=== PATIENT | female | born 1975 ===

== ENCOUNTER 2018-01-02 16:47 | Observation (INO) | payer OTHER ==
[2018-01-02] MEDS ORDERED: Sodium Chloride 0.9% 1,000 ML IV STA (20:07)
[2018-01-02 21:01] LABS: BASO % 0.7 % (0.0-2.0); EOS % 0.6 % (0.0-4.0); LYMPH # 1.7 K/uL (1.0-4.3); LYMPH % 32.8 % (20.0-40.0); MEAN CELL VOLUME 77.9 fl (81.0-99.0); MEAN CORPUSCULAR HEMOGLOBIN 25.2 pg (27.0-31.0); MEAN CORPUSCULAR HGB CONC 32.3 g/dL (33.0-37.0); MEAN PLATELET VOLUME 8.4 fl (7.2-11.7); MONO # 0.4 K/uL (0.0-0.8); MONO % 6.8 % (0.0-10.0); NEUT # 3.1 K/uL (1.8-7.0); NEUT % 59.1 % (50.0-75.0); NRBC % 0.2 % (0.0-0.0); RBC 4.37 Mil/uL (3.80-5.20); RED CELL DISTRIBUTION WIDTH 17.2 % (11.5-14.5); WHITE BLOOD COUNT 5.2 K/uL (4.8-10.8)
[2018-01-02 21:11] LABS: ALB/GLOB RATIO 1.2 (1.0-2.1); ALBUMIN 4.1 g/dL (3.5-5.0); ALT/SGPT 36 U/L (9-52); AST/SGOT 23 U/L (14-36); BLOOD UREA NITROGEN 8 mg/dl (7-17); GFR AFRICAN-AMERICAN > 60; GFR NON-AFRICAN AMERICAN > 60; LIPASE 51 U/L (23-300)
[2018-01-02 21:16] LABS: SQUAMOUS EPITHIAL 4 /hpf (0-5); URINE BACTERIA RARE (<OCC); URINE BILIRUBIN NEGATIVE (NEGATIVE); URINE BLOOD NEGATIVE (NEGATIVE); URINE CLARITY CLOUDY (Clear); URINE COLOR YELLOW (YELLOW); URINE GLUCOSE (UA) NEG (Normal); URINE LEUKOCYTE ESTERASE SMALL Leu/uL (Negative); URINE PROTEIN 30 mg/dL (NEGATIVE); URINE UROBILINOGEN 0.2-1.0 mg/dL (0.2-1.0)
--- NOTE | 2018-01-02 21:42 | ED PDOC ---
HPI: Abdomen Time Seen by Provider: 01/02/18 19:42 Chief Complaint (Nursing): Abdominal Pain Chief Complaint (Provider): abdominal pain History Per: Patient History/Exam Limitations: no limitations Onset/Duration Of Symptoms: Days (2 weeks) Current Symptoms Are (Timing): Still Present Location Of Pain/Discomfort: LLQ Quality Of Discomfort: "Pain" Associated Symptoms: Loss Of Appetite, Other (bloody stool). denies: Fever, Nausea, Vomiting Additional Complaint(s): 42 year old female with a past medical history of diverticulitis presents to the ED complaining of left lower quadrant pain onset two weeks ago. Reports she visited [facility] and was diagnosed with urinary infection. She visited GI specialist, Dr. Lebron and received an abdomen/ pelvis CT angiogram. Also reports the pain progresses and she has a poor appetite. Reports of bloody stool too. Denies fever, nausea, and vomiting. PMD: Gustavo Collado Past Medical History Reviewed: Historical Data, Nursing Documentation, Vital Signs Vital Signs: Last Vital Signs Temp 98.4 F 01/03/18 05:05 Pulse 72 01/03/18 05:05 Resp 19 01/03/18 05:05 BP 108/64 01/03/18 05:05 Pulse Ox 98 01/03/18 05:05 - Medical History PMH: Diverticulitis - Family History Family History: States: Unknown Family Hx - Home Medications Home Medications: Ambulatory Orders Medication Instructions Recorded Ciprofloxacin [Cipro] 500 mg PO BID 01/03/18 metroNIDAZOLE [Flagyl] 250 mg PO TID 01/03/18 - Allergies Allergies/Adverse Reactions: Allergies Allergy/AdvReac Type Severity Reaction Status Date / Time No Known Allergies Allergy Verified 01/02/18 17:28 Review of Systems ROS Statement: Except As Marked, All Systems Reviewed And Found Negative Constitutional: Negative for: Fever Gastrointestinal: Positive for: Abdominal Pain (left lower quadrant). Negative for: Nausea, Vomiting Genitourinary Female: Positive for: Other (bloody stool) Physical Exam - Reviewed Nursing Documentation Reviewed: Yes Vital Signs Reviewed: Yes - Physical Exam Appears: Positive for: Uncomfortable Head Exam: Positive for: ATRAUMATIC, NORMAL INSPECTION, NORMOCEPHALIC Skin: Positive for: Normal Color, Warm, Dry Eye Exam: Positive for: EOMI, Normal appearance, PERRL ENT: Positive for: Normal ENT Inspection Neck: Positive for: Normal, Painless ROM, Supple. Negative for: Decreased ROM Cardiovascular/Chest: Positive for: Regular Rate, Rhythm. Negative for: Murmur Respiratory: Positive for: Normal Breath Sounds. Negative for: Decreased Breath Sounds, Accessory Muscle Use, Respiratory Distress Gastrointestinal/Abdominal: Positive for: Soft, Tenderness (palpitations to left lower quadrant) Back: Positive for: Normal Inspection. Negative for: L CVA Tenderness, R CVA Tenderness Extremity: Positive for: Normal ROM. Negative for: Tenderness, Pedal Edema, Deformity Neurologic/Psych: Positive for: Alert, Oriented (x3), Gait (steady) - Laboratory Results Result Diagrams: 01/02/18 20:55 01/02/18 20:55 - ECG O2 Sat by Pulse Oximetry: 99 (RA) Pulse Ox Interpretation: Normal Medical Decision Making Medical Decision Making: Time: 19:55 Initial Impression: 42 y/o female with left lower quadrant tenderness inset of diverticulitis; currently being treated for diverticulitis Initial Plan: -- CMP --Lactic Acid --Lipase --ED Urine --ED Urine dipstick --CBC w/ differential --C-Reactive Protein --Normal Saline 1000 mls/hr --Toradol 15mg --Blood Culture --Urinalysis --Reevaluation Time: 20:20 Dr. Lebron asked for patient's CRQ level and incising colonoscopy after reviewing labs tomorrow morning. 22:10 Dr. Lebron was recontacted and made aware of the WBC. He does not want the patient to undergo a CT scan but suggested as pelvic ultrasound to rule out ovarian etiology of her pain. 00:23 EXAM: US Pelvis, Transvaginal US Duplex Arterial/Venous of the Pelvis, Complete EXAM DATE/TIME: 01/02/2018 10:11 PM CLINICAL HISTORY: 42 years old, female; Pain; Pelvic pain; Additional info: Left ovarian pain TECHNIQUE: Real-time transvaginal pelvic ultrasound (complete) with image documentation. Transvaginal imaging was used for better evaluation of the endometrium and adnexa. Real-time duplex ultrasound scan of the arterial and venous flow of the pelvis with color Doppler flow and spectral waveform analysis. COMPARISON: There are no prior studies for comparison. FINDINGS: Uterus: Uterus measures approximately 9 x 5.8 x 8 cm. Endometrium measures approximately 11 mm in width. There are multiple nabothian cysts in the cervix. There are multiple fibroids. There is a right fundal fibroid 3.1 x 3 x 2.5 cm. There is a 3.7 x 3.2 cm submucosal fibroid. There is a posterior fundal fibroid Right ovary: Right ovary measures approximately 2 x 1.3 x 2 cm. There is a dominant follicle.There is expected blood flow on Doppler imaging Left ovary: Left ovary is not well visualized. Left ovary measures approximately 3.8 x 1.6 x 2.4 cm. There are follicles in the left ovary.There is expected blood flow on Doppler imaging Free fluid: There is no free fluid. Bladder: Not evaluated IMPRESSION: Fibroid uterus; no torsion 02:[address] Locke for admission of the patient for Diverticular disease, failed out treatment, left lower quadrant pain. Scribe Attestation: Documented by Lindsey Jsohi, acting as a scribe for Richard Bourgeois MD Provider Scribe Attestation: All medical record entries made by the Scribe were at my direction and personally dictated by me. I have reviewed the chart and agree that the record accurately reflects my personal performance of the history, physical exam, medical decision making, and the department course for this patient. I have also personally directed, reviewed, and agree with the discharge instructions and disposition. Disposition - Clinical Impression Clinical Impression: Abdominal pain, Diverticulitis - Patient ED Disposition Is Patient to be Admitted: Yes Discussed With : Kit Locke Doctor Will See Patient In The: Hospital - Disposition Disposition: Routine/Home Disposition Time: 02:38 Condition: FAIR
[2018-01-03] MEDS ORDERED: metroNIDAZOLE 500mg/100ml NS 100 ML IVPB STA (02:30)
[2018-01-03] MEDS ORDERED: Ciprofloxacin 400mg/200ml D5W 400 MG/200 ML BAG IV STA (02:32)
[2018-01-03] MEDS ORDERED: Sodium Chloride 0.9% 1,000 ML IV SCH (02:45)
--- NOTE | 2018-01-03 02:45 | CP.PCM.HP ---
History of Present Illness - History of Present Illness History of Present Illness: CC: abd pain, bloody stool HPI: This is a 42 y/o female with MHx significant for diverticulitis who has been on outpatient Abx of past two weeks. She continues to c/o bloody stool. Apparently she visited [facility] recently where she was dx'ed with UTI. She has seen Dr. Lebron as an outpatient, and was pending CT angiogram. Patient otherwise denies f/c/n/v. Currently patient states her pain is controlled after receiving medication. ROS: 14 systems reviewed, negative other than HPI MHx: Diverticulosis/itis SHx: None Allergies: NKDA Medications: As per med rec Family Hx: no significant history reported Social Hx: Lives with family, no tobacco, no EtOH Present on Admission - Present on Admission Any Indicators Present on Admission: No Past Patient History - Past Social History Smoking Status: Never Smoked - GASTROINTESTINAL Hx Diverticulitis: Yes - PSYCHIATRIC Hx Substance Use: No - SURGICAL HISTORY Other/Comment: hemorrhoidectomy - ANESTHESIA Hx Anesthesia: Yes Meds Allergies/Adverse Reactions: Allergies Allergy/AdvReac Type Severity Reaction Status Date / Time No Known Allergies Allergy Verified 01/02/18 17:28 Physical Exam - Constitutional Appears: No Acute Distress - Head Exam Head Exam: ATRAUMATIC, NORMOCEPHALIC - Eye Exam Eye Exam: EOMI, PERRL - ENT Exam ENT Exam: Mucous Membranes Moist - Neck Exam Neck exam: Positive for: Full Rom - Respiratory Exam Respiratory Exam: Clear to Auscultation Bilateral, NORMAL BREATHING PATTERN - Cardiovascular Exam Cardiovascular Exam: REGULAR RHYTHM, +S1, +S2 - GI/Abdominal Exam GI & Abdominal Exam: Normal Bowel Sounds, Soft, Tenderness Additional comments: LLQ ttp - Extremities Exam Extremities exam: Positive for: full ROM, normal inspection - Neurological Exam Neurological exam: Alert, CN II-XII Intact, Oriented x3 - Psychiatric Exam Psychiatric exam: Normal Affect, Normal Mood - Skin Skin Exam: Dry, Warm Results - Vital Signs Recent Vital Signs: Last Vital Signs Temp 98.2 F 01/02/18 17:28 Pulse 90 01/02/18 17:28 Resp 16 01/02/18 17:28 BP 138/63 01/02/18 17:28 Pulse Ox 99 01/03/18 02:40 - Labs Result Diagrams: 01/02/18 20:55 01/02/18 20:55 Labs: Laboratory Results - last 24 hr 01/02/18 01/02/18 01/02/18 20:55 20:55 20:55 WBC 5.2 RBC 4.37 Hgb 11.0 L Hct 34.0 MCV 77.9 L MCH 25.2 L MCHC 32.3 L RDW 17.2 H Plt Count 184 MPV 8.4 Neut % (Auto) 59.1 Lymph % (Auto) 32.8 [place] % (Auto) 6.8 Eos % (Auto) 0.6 Baso % (Auto) 0.7 Neut # (Auto) 3.1 Lymph # (Auto) 1.7 [place] # (Auto) 0.4 Eos # (Auto) 0.0 Baso # (Auto) 0.0 Sodium 141 Potassium 4.0 Chloride 103 Carbon Dioxide 25 Anion Gap 17 BUN 8 Creatinine 0.5 L Est GFR ( Amer) > 60 Est GFR (Non-Af Amer) > 60 Random Glucose 86 Lactic Acid 0.8 Calcium 9.0 Total Bilirubin 0.5 AST 23 ALT 36 Alkaline Phosphatase 65 Total Protein 7.5 Albumin 4.1 Globulin 3.3 Albumin/Globulin Ratio 1.2 Lipase 51 Urine Color Urine Clarity Urine pH Ur Specific [place] Urine Protein Urine Glucose (UA) Urine Ketones Urine Blood Urine Nitrate Urine Bilirubin Urine Urobilinogen Ur Leukocyte Esterase Urine RBC (Auto) Urine Microscopic WBC Ur Squamous Epith Cells Urine Bacteria 01/02/18 20:55 WBC RBC Hgb Hct MCV MCH MCHC RDW Plt Count MPV Neut % (Auto) Lymph % (Auto) [place] % (Auto) Eos % (Auto) Baso % (Auto) Neut # (Auto) Lymph # (Auto) [place] # (Auto) Eos # (Auto) Baso # (Auto) Sodium Potassium Chloride Carbon Dioxide Anion Gap BUN Creatinine Est GFR ( Amer) Est GFR (Non-Af Amer) Random Glucose Lactic Acid Calcium Total Bilirubin AST ALT Alkaline Phosphatase Total Protein Albumin Globulin Albumin/Globulin Ratio Lipase Urine Color Yellow Urine Clarity Cloudy Urine pH 6.0 Ur Specific [place] 1.024 Urine Protein 30 Urine Glucose (UA) Neg Urine Ketones 80 Urine Blood Negative Urine Nitrate Negative Urine Bilirubin Negative Urine Urobilinogen 0.2-1.0 Ur Leukocyte Esterase Small Urine RBC (Auto) 3 Urine Microscopic WBC 9 H Ur Squamous Epith Cells 4 Urine Bacteria Rare Assessment & Plan (1) Diverticulitis Assessment and Plan: 42 y/o female with known diverticulosis/itis presenting with persistent abd pain and bloody stool. -admit obs -Cont cipro/flagyl, but switch to IV -NPO, IVF -Pain control per scale -Consult Lebron (GI) in AM for possible scope -SCDs for DVT PPx Status: Acute (2) DVT prophylaxis Status: Acute
--- NOTE | 2018-01-03 08:43 | CP.PCM.CON ---
History of Present Illness - History of Present Illness History of Present Illness: 42 yo female seen by me last Tuesday for lower abdominal pain. Patient states she has had diverticulitis in the past and had CT at [facility]. However in my office she didn't bring a copy of the report. She also reports having a colonoscopy about 6 months ago but I have not seen the report. Has been on cipro and flagyl since Tuesday but pain persists. Reports small amounts bright red blood on toilet paper. Review of Systems - Constitutional Constitutional: absent: Chills - EENT Eyes: absent: Blurred Vision Ears: absent: Ear Discharge Nose/Mouth/Throat: absent: Epistaxis - Cardiovascular Cardiovascular: absent: Chest Pain - Respiratory Respiratory: absent: Dyspnea - Gastrointestinal Gastrointestinal: As Per HPI - Genitourinary Genitourinary: absent: Change in Urinary Stream Past Patient History - Past Medical History & Family History Past Medical History?: Yes - Past Social History Smoking Status: Never Smoked - CARDIAC Hx Cardiac Disorders: Yes Hx Hypercholesterolemia: Yes - PULMONARY Hx Respiratory Disorders: No - NEUROLOGICAL Hx Neurological Disorder: No - HEENT Hx HEENT Problems: No - RENAL Hx Chronic Kidney Disease: No - ENDOCRINE/METABOLIC Hx Endocrine Disorders: No - HEMATOLOGICAL/ONCOLOGICAL Hx Blood Disorders: No - INTEGUMENTARY Hx Dermatological Problems: No - MUSCULOSKELETAL/RHEUMATOLOGICAL Hx Musculoskeletal Disorders: No Hx Falls: No - GASTROINTESTINAL Hx Diverticulitis: Yes - GENITOURINARY/GYNECOLOGICAL Hx Genitourinary Disorders: No - PSYCHIATRIC Hx Psychophysiologic Disorder: No Hx Substance Use: No - SURGICAL HISTORY Hx Surgeries: Yes Other/Comment: hemorrhoidectomy - ANESTHESIA Hx Anesthesia: Yes Hx Anesthesia Reactions: No Hx Malignant Hyperthermia: No Has any member of the family had a problem w/ anesthesia?: No Meds Allergies/Adverse Reactions: Allergies Allergy/AdvReac Type Severity Reaction Status Date / Time No Known Allergies Allergy Verified 01/02/18 17:28 - Medications Medications: Current Medications Acetaminophen (Tylenol 325mg Tab) 650 mg PO Q6 PRN PRN Reason: Pain, Mild (1-3) Ciprofloxacin (Cipro 400mg/200ml Dsw) 400 mg in 200 mls @ 200 mls/hr IVPB Q12 MARIA EUGENIA PRN Reason: Protocol Metronidazole (Flagyl 500mg/100ml Ns) 100 mls @ 100 mls/hr IVPB Q8 MARIA EUGENIA PRN Reason: Protocol Sodium Chloride (Sodium Chloride 0.9%) 1,000 mls @ 100 mls/hr IV .Q10H MARIA EUGENIA Stop: 01/03/18 12:44 Last Admin: 01/03/18 03:02 Dose: 100 mls/hr Ondansetron HCl (Zofran Inj) 4 mg IVP Q6 PRN PRN Reason: Nausea/Vomiting Oxycodone/Acetaminophen (Percocet 5/325 Mg Tab) 1 tab PO Q6 PRN PRN Reason: Pain, moderate (4-7) Stop: 01/06/18 02:43 Physical Exam - Constitutional Appears: No Acute Distress - Head Exam Head Exam: ATRAUMATIC - Eye Exam Eye Exam: EOMI - ENT Exam ENT Exam: Mucous Membranes Moist - Neck Exam Neck exam: Positive for: Normal Inspection - Respiratory Exam Respiratory Exam: NORMAL BREATHING PATTERN - Cardiovascular Exam Cardiovascular Exam: REGULAR RHYTHM, +S1, +S2 - GI/Abdominal Exam GI & Abdominal Exam: Normal Bowel Sounds, Soft, Tenderness. absent: Rebound Additional comments: suprapubic and LLQ tenderness but no guarding or rebound. Results - Vital Signs Recent Vital Signs: Last Vital Signs Temp 98.4 F 01/03/18 07:56 Pulse 66 01/03/18 07:56 Resp 20 01/03/18 07:56 BP 105/61 01/03/18 07:56 Pulse Ox 100 01/03/18 07:56 - Labs Result Diagrams: 01/02/18 20:55 01/02/18 20:55 Labs: Laboratory Results - last 24 hr 01/02/18 01/02/18 01/02/18 20:55 20:55 20:55 WBC 5.2 RBC 4.37 Hgb 11.0 L Hct 34.0 MCV 77.9 L MCH 25.2 L MCHC 32.3 L RDW 17.2 H Plt Count 184 MPV 8.4 Neut % (Auto) 59.1 Lymph % (Auto) 32.8 [place] % (Auto) 6.8 Eos % (Auto) 0.6 Baso % (Auto) 0.7 Neut # (Auto) 3.1 Lymph # (Auto) 1.7 [place] # (Auto) 0.4 Eos # (Auto) 0.0 Baso # (Auto) 0.0 Sodium 141 Potassium 4.0 Chloride 103 Carbon Dioxide 25 Anion Gap 17 BUN 8 Creatinine 0.5 L Est GFR ( Amer) > 60 Est GFR (Non-Af Amer) > 60 Random Glucose 86 Lactic Acid 0.8 Calcium 9.0 Total Bilirubin 0.5 AST 23 ALT 36 Alkaline Phosphatase 65 Total Protein 7.5 Albumin 4.1 Globulin 3.3 Albumin/Globulin Ratio 1.2 Lipase 51 Urine Color Urine Clarity Urine pH Ur Specific [place] Urine Protein Urine Glucose (UA) Urine Ketones Urine Blood Urine Nitrate Urine Bilirubin Urine Urobilinogen Ur Leukocyte Esterase Urine RBC (Auto) Urine Microscopic WBC Ur Squamous Epith Cells Urine Bacteria 01/02/18 20:55 WBC RBC Hgb Hct MCV MCH MCHC RDW Plt Count MPV Neut % (Auto) Lymph % (Auto) [place] % (Auto) Eos % (Auto) Baso % (Auto) Neut # (Auto) Lymph # (Auto) [place] # (Auto) Eos # (Auto) Baso # (Auto) Sodium Potassium Chloride Carbon Dioxide Anion Gap BUN Creatinine Est GFR ( Amer) Est GFR (Non-Af Amer) Random Glucose Lactic Acid Calcium Total Bilirubin AST ALT Alkaline Phosphatase Total Protein Albumin Globulin Albumin/Globulin Ratio Lipase Urine Color Yellow Urine Clarity Cloudy Urine pH 6.0 Ur Specific [place] 1.024 Urine Protein 30 Urine Glucose (UA) Neg Urine Ketones 80 Urine Blood Negative Urine Nitrate Negative Urine Bilirubin Negative Urine Urobilinogen 0.2-1.0 Ur Leukocyte Esterase Small Urine RBC (Auto) 3 Urine Microscopic WBC 9 H Ur Squamous Epith Cells 4 Urine Bacteria Rare Assessment & Plan (1) Abdominal pain Assessment and Plan: Patient with lower abdominal pain etiology non apparent. Pelvic sono did show fibroid uterus . Currently on IV antibiotics. Will place on full liquid diet and may advance as tolerated. Diverticulitis as cause of pain is less likely with normal WBC and no fever. Rectal bleeding appears to be minor. CBC ordered for today. Consider [employer] consult as cause of pain could be pelvic. Status: Acute
[2018-01-03] MEDS: Oxycodone/Acetaminophen 5/325 mg Tab PO PRN ×2 (08:54→16:18)
[2018-01-03 09:44] LABS: BASO % 0.9 % (0.0-2.0); EOS % 1.2 % (0.0-4.0); HEMOGLOBIN 11.5 g/dL (12.0-16.0); LYMPH # 1.3 K/uL (1.0-4.3); LYMPH % 30.9 % (20.0-40.0); MEAN CELL VOLUME 77.4 fl (81.0-99.0); MEAN CORPUSCULAR HEMOGLOBIN 25.4 pg (27.0-31.0); MEAN CORPUSCULAR HGB CONC 32.8 g/dL (33.0-37.0); MEAN PLATELET VOLUME 8.5 fl (7.2-11.7); MONO # 0.2 K/uL (0.0-0.8); MONO % 5.4 % (0.0-10.0); NEUT # 2.6 K/uL (1.8-7.0); NEUT % 61.6 % (50.0-75.0); RBC 4.54 Mil/uL (3.80-5.20); RED CELL DISTRIBUTION WIDTH 17.3 % (11.5-14.5); WHITE BLOOD COUNT 4.1 K/uL (4.8-10.8)
[2018-01-03 09:55] LABS: BLOOD UREA NITROGEN 7 mg/dl (7-17); CALCIUM 8.6 mg/dL (8.4-10.2); GFR AFRICAN-AMERICAN > 60; GFR NON-AFRICAN AMERICAN > 60
[2018-01-03] MEDS: metroNIDAZOLE 500mg/100ml NS 100 ML IVPB SCH ×2 (10:09→16:19)
[2018-01-03] MEDS: Ciprofloxacin 400mg/200ml D5W 400 MG/200 ML BAG IVPB SCH ×2 (10:10→21:37)
--- NOTE | 2018-01-03 11:28 | US ---
HISTORY: Left ovarian pain. LMP 12/20/2017. Irregular cycles. Negative urine test. COMPARISON: 12/29/2010 TECHNIQUE: Transvaginal only. Real -time technique with 2D, duplex and color Doppler FINDINGS: UTERUS: Measures 5.8 x 8.2 x 9.1 cm. Normal in size and appearance. Posterior lower uterine segment fibroid 3.2 x 3.7 cm. Fundal fibroid 3.9 x 5.4 cm. Submucosal fibroid to the right of the midline in the body of the uterus 3 x 3.2 cm. ENDOMETRIUM: Measures 11.2 mm in diameter. No ultrasound findings to suggest gestational sac, fluid, debris, mass or polyp or other pathologic process within the endometrium. CERVIX: No cervical abnormality identified.Incidental finding: Nabothian cysts the largest measures RIGHT OVARY: Measures 1.3 x 2 x 2.1 cm. No solid mass. Normal flow. Multiple subcentimeter follicles. LEFT OVARY: Measures 0.9 x 2.4 x 3.0 cm. No solid mass. Normal flow. Multiple subcentimeter follicles. FREE FLUID: No significant free fluid noted. OTHER FINDINGS: None. IMPRESSION: Mildly enlarged, heterogeneous myomatous uterus. Flow identified in both adnexa. Additional benign and/or incidental findings described above. Concordant results (preliminary interpretation) provided by [employer]. Procedure Completed: 23:19. Preliminary ([employer]) Report: Dictated and Authenticated: Final Interpretation: 11:29. January 03, 2018.
--- NOTE | 2018-01-03 18:45 | CP.PCM.CON ---
<Sultan Zunilda - Last Filed: 01/03/18 19:20> History of Present Illness - History of Present Illness History of Present Illness: FINANCIAL INSTITUTION TREASURER Consult note for Dr. Tineo 42 yo G0 pmhx diverticulitis, hemorrhoidectomy and uterine fibroids presents to ED w/ complaints of LLQ abdominal pain x 2 weeks, along with blood in stool for few days and chronic hx constipation x 2-3 yrs. Byproducts Pump Operator was consulted for uterine fibroids and lower abdominal pain. Pt reports she has hx fibroid for 7 yrs but never had lower abdominal pain until recently. Denies vaginal bleeding, vaginal discharge or pruritus. Pt reports she recently had ?CT scan at [facility] which showed leiomyoma and uterine fibroids and advised to f/u with security associate. Pt went to see a provider at [facility] and was told to f/u with [facility] with a mechanical operator. Pt still did not make the appointment yet. Past OBHx: G0 Past gynhx: menarche at age 10, regular menstruation. LMP 12/20/17. Sexually active, last coitus 2 weeks ago. Pt reports she had workup done for infertility including hx hysterosalpingogram in 2008. PAP done in 06/2017 and was told to repeat in a year. Pmhx: uterine fibroids, diverticulitis and hemorrhoids Pshx: hemorrhoidectomy, colonoscopy with polyp resection. socialhx: denies smoking cigarettes, drinking alcohol or using drugs. family hx: denies family hx uterine or breast ca. meds: denies allergy: NKDA Review of Systems - Constitutional Constitutional: absent: Fever - Cardiovascular Cardiovascular: absent: Chest Pain, Dyspnea - Respiratory Respiratory: absent: Cough, Dyspnea - Gastrointestinal Gastrointestinal: Abdominal Pain, Constipation. absent: Diarrhea, Vomiting - Genitourinary Genitourinary: absent: Dysuria, Hematuria - Reproductive: Female Reproductive:Female: Normal Menses. absent: Abnormal Vaginal Bleeding, Vaginal Odor, Vaginal Pruritis - Neurological Neurological: absent: Headaches Past Patient History - Past Medical History & Family History Past Medical History?: Yes - Past Social History Smoking Status: Never Smoked - CARDIAC Hx Cardiac Disorders: Yes Hx Hypercholesterolemia: Yes - PULMONARY Hx Respiratory Disorders: No - NEUROLOGICAL Hx Neurological Disorder: No - HEENT Hx HEENT Problems: No - RENAL Hx Chronic Kidney Disease: No - ENDOCRINE/METABOLIC Hx Endocrine Disorders: No - HEMATOLOGICAL/ONCOLOGICAL Hx Blood Disorders: No - INTEGUMENTARY Hx Dermatological Problems: No - MUSCULOSKELETAL/RHEUMATOLOGICAL Hx Musculoskeletal Disorders: No Hx Falls: No - GASTROINTESTINAL Hx Diverticulitis: Yes - GENITOURINARY/GYNECOLOGICAL Hx Genitourinary Disorders: No - PSYCHIATRIC Hx Psychophysiologic Disorder: No Hx Substance Use: No - SURGICAL HISTORY Hx Surgeries: Yes Other/Comment: hemorrhoidectomy - ANESTHESIA Hx Anesthesia: Yes Hx Anesthesia Reactions: No Hx Malignant Hyperthermia: No Has any member of the family had a problem w/ anesthesia?: No Meds Allergies/Adverse Reactions: Allergies Allergy/AdvReac Type Severity Reaction Status Date / Time No Known Allergies Allergy Verified 01/02/18 17:28 - Medications Medications: Current Medications Acetaminophen (Tylenol 325mg Tab) 650 mg PO Q6 PRN PRN Reason: Pain, Mild (1-3) Ciprofloxacin (Cipro 400mg/200ml Dsw) 400 mg in 200 mls @ 200 mls/hr IVPB Q12 MARIA EUGENIA PRN Reason: Protocol Last Admin: 01/03/18 10:10 Dose: 200 mls/hr Metronidazole (Flagyl 500mg/100ml Ns) 100 mls @ 100 mls/hr IVPB Q8 MARIA EUGENIA PRN Reason: Protocol Last Admin: 01/03/18 16:19 Dose: 100 mls/hr Ondansetron HCl (Zofran Inj) 4 mg IVP Q6 PRN PRN Reason: Nausea/Vomiting Oxycodone/Acetaminophen (Percocet 5/325 Mg Tab) 1 tab PO Q6 PRN PRN Reason: Pain, moderate (4-7) Stop: 01/06/18 02:43 Last Admin: 01/03/18 16:18 Dose: 1 tab Physical Exam - Constitutional Appears: Non-toxic, No Acute Distress - Respiratory Exam Respiratory Exam: Clear to Auscultation Bilateral, NORMAL BREATHING PATTERN. absent: Rales, Rhonchi, Wheezes - Cardiovascular Exam Cardiovascular Exam: REGULAR RHYTHM, RRR, +S1, +S2 - GI/Abdominal Exam GI & Abdominal Exam: absent: Distended, Guarding Additional comments: Mild tenderness at LLQ, no guarding or rigidity. No suprapubic tenderness. - Exam Additional comments: Declined - Neurological Exam Neurological exam: Alert, Oriented x3 Results - Vital Signs Recent Vital Signs: Last Vital Signs Temp 98.2 F 01/03/18 15:37 Pulse 73 01/03/18 15:37 Resp 20 01/03/18 15:37 BP 130/79 01/03/18 15:37 Pulse Ox 99 01/03/18 15:37 - Labs Result Diagrams: 01/03/18 09:38 01/03/18 09:38 Labs: Laboratory Results - last 24 hr 01/02/18 01/02/18 01/02/18 20:55 20:55 20:55 WBC 5.2 RBC 4.37 Hgb 11.0 L Hct 34.0 MCV 77.9 L MCH 25.2 L MCHC 32.3 L RDW 17.2 H Plt Count 184 MPV 8.4 Neut % (Auto) 59.1 Lymph % (Auto) 32.8 [place] % (Auto) 6.8 Eos % (Auto) 0.6 Baso % (Auto) 0.7 Neut # (Auto) 3.1 Lymph # (Auto) 1.7 [place] # (Auto) 0.4 Eos # (Auto) 0.0 Baso # (Auto) 0.0 Sodium 141 Potassium 4.0 Chloride 103 Carbon Dioxide 25 Anion Gap 17 BUN 8 Creatinine 0.5 L Est GFR ( Amer) > 60 Est GFR (Non-Af Amer) > 60 Random Glucose 86 Lactic Acid 0.8 Calcium 9.0 Total Bilirubin 0.5 AST 23 ALT 36 Alkaline Phosphatase 65 Total Protein 7.5 Albumin 4.1 Globulin 3.3 Albumin/Globulin Ratio 1.2 Lipase 51 Urine Color Urine Clarity Urine pH Ur Specific [place] Urine Protein Urine Glucose (UA) Urine Ketones Urine Blood Urine Nitrate Urine Bilirubin Urine Urobilinogen Ur Leukocyte Esterase Urine RBC (Auto) Urine Microscopic WBC Ur Squamous Epith Cells Urine Bacteria 01/02/18 01/03/18 01/03/18 20:55 09:38 09:38 WBC 4.1 L RBC 4.54 Hgb 11.5 L Hct 35.2 MCV 77.4 L MCH 25.4 L MCHC 32.8 L RDW 17.3 H Plt Count 181 MPV 8.5 Neut % (Auto) 61.6 Lymph % (Auto) 30.9 [place] % (Auto) 5.4 Eos % (Auto) 1.2 Baso % (Auto) 0.9 Neut # (Auto) 2.6 Lymph # (Auto) 1.3 [place] # (Auto) 0.2 Eos # (Auto) 0.0 Baso # (Auto) 0.0 Sodium 141 Potassium 3.6 Chloride 105 Carbon Dioxide 26 Anion Gap 14 BUN 7 Creatinine 0.5 L Est GFR ( Amer) > 60 Est GFR (Non-Af Amer) > 60 Random Glucose 139 H Lactic Acid Calcium 8.6 Total Bilirubin AST ALT Alkaline Phosphatase Total Protein Albumin Globulin Albumin/Globulin Ratio Lipase Urine Color Yellow Urine Clarity Cloudy Urine pH 6.0 Ur Specific [place] 1.024 Urine Protein 30 Urine Glucose (UA) Neg Urine Ketones 80 Urine Blood Negative Urine Nitrate Negative Urine Bilirubin Negative Urine Urobilinogen 0.2-1.0 Ur Leukocyte Esterase Small Urine RBC (Auto) 3 Urine Microscopic WBC 9 H Ur Squamous Epith Cells 4 Urine Bacteria Rare Assessment & Plan - Assessment and Plan (Free Text) Assessment: Assessment: 42 yo G0 admitted to [facility] on 01/03/18 for suspected diverticulitis and has uterine fibroids on US. Plan: 1. LLQ abdominal pain Transvaginal US impression: Mildly enlarged, heterogenous myomatous uterus. -Pt's current abdominal pain unlikely to be due to uterine fibroids. -Continue with current medical management as per primary team -Pt can follow up outpatient with a mechanical operator ( pt has information for [facility] ob /security associate clinic). -FINANCIAL INSTITUTION TREASURER will sign off from this case, re-consult PRN case d/w on-call OB Hospitalist Dr. Rivka Mauro, [id number] <Solitario Tineo - Last Filed: 01/04/18 10:05> Meds - Medications Medications: Current Medications Acetaminophen (Tylenol 325mg Tab) 650 mg PO Q6 PRN PRN Reason: Pain, Mild (1-3) Ciprofloxacin (Cipro 400mg/200ml Dsw) 400 mg in 200 mls @ 200 mls/hr IVPB Q12 MARIA EUGENIA PRN Reason: Protocol Last Admin: 01/03/18 21:37 Dose: 200 mls/hr Metronidazole (Flagyl 500mg/100ml Ns) 100 mls @ 100 mls/hr IVPB Q8 MARIA EUGENIA PRN Reason: Protocol Last Admin: 01/04/18 00:28 Dose: 100 mls/hr Ondansetron HCl (Zofran Inj) 4 mg IVP Q6 PRN PRN Reason: Nausea/Vomiting Last Admin: 01/03/18 19:38 Dose: 4 mg Oxycodone/Acetaminophen (Percocet 5/325 Mg Tab) 1 tab PO Q6 PRN PRN Reason: Pain, moderate (4-7) Stop: 01/06/18 02:43 Last Admin: 01/03/18 16:18 Dose: 1 tab Results - Vital Signs Recent Vital Signs: Last Vital Signs Temp 97.6 F 01/04/18 08:14 Pulse 62 01/04/18 08:14 Resp 20 01/04/18 08:14 BP 113/67 01/04/18 08:14 Pulse Ox 99 01/04/18 08:14 - Labs Result Diagrams: 01/03/18 09:38 01/03/18 09:38 Assessment & Plan - Assessment and Plan (Free Text) Plan: Case rev'd and agree wt pGY1 note. Case also discuse with [facility] providers JG
[2018-01-04] MEDS: metroNIDAZOLE 500mg/100ml NS 100 ML IVPB SCH ×2 (00:28→12:07)
[2018-01-04] MEDS: Ciprofloxacin 400mg/200ml D5W 400 MG/200 ML BAG IVPB SCH (09:00)
--- NOTE | 2018-01-04 11:15 | CP.PCM.PN ---
Subjective - Date & Time of Evaluation Date of Evaluation: 01/04/18 Time of Evaluation: 11:13 - Subjective Subjective: Pain much improved. tolerating liquids. Objective - Vital Signs/Intake and Output Vital Signs (last 24 hours): Temp Pulse Resp BP Pulse Ox 97.6 F 62 20 113/67 99 01/04/18 08:14 01/04/18 08:14 01/04/18 08:14 01/04/18 08:14 01/04/18 08:14 Intake and Output: 01/04/18 01/04/18 06:59 18:59 Intake Total 1000 Balance 1000 - Medications Medications: Current Medications Acetaminophen (Tylenol 325mg Tab) 650 mg PO Q6 PRN PRN Reason: Pain, Mild (1-3) Ciprofloxacin (Cipro 400mg/200ml Dsw) 400 mg in 200 mls @ 200 mls/hr IVPB Q12 MARIA EUGENIA PRN Reason: Protocol Last Admin: 01/03/18 21:37 Dose: 200 mls/hr Metronidazole (Flagyl 500mg/100ml Ns) 100 mls @ 100 mls/hr IVPB Q8 MARIA EUGENIA PRN Reason: Protocol Last Admin: 01/04/18 00:28 Dose: 100 mls/hr Ondansetron HCl (Zofran Inj) 4 mg IVP Q6 PRN PRN Reason: Nausea/Vomiting Last Admin: 01/03/18 19:38 Dose: 4 mg Oxycodone/Acetaminophen (Percocet 5/325 Mg Tab) 1 tab PO Q6 PRN PRN Reason: Pain, moderate (4-7) Stop: 01/06/18 02:43 Last Admin: 01/03/18 16:18 Dose: 1 tab - Labs Labs: 01/03/18 09:38 01/03/18 09:38 - Head Exam Head Exam: ATRAUMATIC - Eye Exam Eye Exam: EOMI - ENT Exam ENT Exam: Mucous Membranes Moist - Neck Exam Neck Exam: Normal Inspection - Respiratory Exam Respiratory Exam: Clear to Ausculation Bilateral - GI/Abdominal Exam GI & Abdominal Exam: Soft. absent: Tenderness Assessment and Plan (1) Abdominal pain Assessment & Plan: Much better clinically. Will do flex sig today to examine area of abdominal pain. Status: Acute
[2018-01-04] MEDS ORDERED: Lactated Ringer's 500 ML IV ONE (12:50)
--- NOTE | 2018-01-04 13:57 | CP.PCM.DIS ---
Provider - Provider Date of Admission: 01/03/18 02:29 Attending physician: Kit Locke MD Consults: GI ; Dr Lebron RECEPTIONIST TELEPHONE OPERATOR: DR Tineo Time Spent in preparation of Discharge (in minutes): 35 Diagnosis - Discharge Diagnosis (1) Abdominal pain Status: Acute (2) Uterine fibroid Status: Chronic (3) Internal hemorrhoids Status: Chronic Hospital Course - Lab Results Lab Results: Micro Results 01/02/18 21:15 Blood Blood Culture - Preliminary NO GROWTH AFTER 24 HOURS 01/02/18 20:45 Blood Blood Culture - Preliminary NO GROWTH AFTER 24 HOURS Most Recent Lab Values WBC 4.1 K/uL (4.8-10.8) L 01/03/18 09:38 RBC 4.54 Mil/uL (3.80-5.20) 01/03/18 09:38 Hgb 11.5 g/dL (12.0-16.0) L 01/03/18 09:38 Hct 35.2 % (34.0-47.0) 01/03/18 09:38 MCV 77.4 fl (81.0-99.0) L 01/03/18 09:38 MCH 25.4 pg (27.0-31.0) L 01/03/18 09:38 MCHC 32.8 g/dL (33.0-37.0) L 01/03/18 09:38 RDW 17.3 % (11.5-14.5) H 01/03/18 09:38 Plt Count 181 K/uL (130-400) 01/03/18 09:38 MPV 8.5 fl (7.2-11.7) 01/03/18 09:38 Neut % (Auto) 61.6 % (50.0-75.0) 01/03/18 09:38 Lymph % (Auto) 30.9 % (20.0-40.0) 01/03/18 09:38 [place] % (Auto) 5.4 % (0.0-10.0) 01/03/18 09:38 Eos % (Auto) 1.2 % (0.0-4.0) 01/03/18 09:38 Baso % (Auto) 0.9 % (0.0-2.0) 01/03/18 09:38 Neut # (Auto) 2.6 K/uL (1.8-7.0) 01/03/18 09:38 Lymph # (Auto) 1.3 K/uL (1.0-4.3) 01/03/18 09:38 [place] # (Auto) 0.2 K/uL (0.0-0.8) 01/03/18 09:38 Eos # (Auto) 0.0 K/uL (0.0-0.7) 01/03/18 09:38 Baso # (Auto) 0.0 K/uL (0.0-0.2) 01/03/18 09:38 Sodium 141 mmol/l (132-148) 01/03/18 09:38 Potassium 3.6 MMOL/L (3.6-5.0) 01/03/18 09:38 Chloride 105 mmol/L (98-107) 01/03/18 09:38 Carbon Dioxide 26 mmol/L (22-30) 01/03/18 09:38 Anion Gap 14 (10-20) 01/03/18 09:38 BUN 7 mg/dl (7-17) 01/03/18 09:38 Creatinine 0.5 mg/dl (0.7-1.2) L 01/03/18 09:38 Est GFR ( Amer) > 60 01/03/18 09:38 Est GFR (Non-Af Amer) > 60 01/03/18 09:38 Random Glucose 139 mg/dL (65-105) H 01/03/18 09:38 Lactic Acid 0.8 MMOL/L (0.7-2.1) 01/02/18 20:55 Calcium 8.6 mg/dL (8.4-10.2) 01/03/18 09:38 Total Bilirubin 0.5 mg/dl (0.2-1.3) 01/02/18 20:55 AST 23 U/L (14-36) 01/02/18 20:55 ALT 36 U/L (9-52) 01/02/18 20:55 Alkaline Phosphatase 65 U/L (38-126) 01/02/18 20:55 C-Reactive Prot, Quant 1.9 mg/L (<8.0) 01/02/18 20:55 Total Protein 7.5 G/DL (6.3-8.2) 01/02/18 20:55 Albumin 4.1 g/dL (3.5-5.0) 01/02/18 20:55 Globulin 3.3 gm/dL (2.2-3.9) 01/02/18 20:55 Albumin/Globulin Ratio 1.2 (1.0-2.1) 01/02/18 20:55 Lipase 51 U/L (23-300) 01/02/18 20:55 Urine Color Yellow (YELLOW) 01/02/18 20:55 Urine Clarity Cloudy (Clear) 01/02/18 20:55 Urine pH 6.0 (5.0-8.0) 01/02/18 20:55 Ur Specific [place] 1.024 (1.003-1.030) 01/02/18 20:55 Urine Protein 30 mg/dL (NEGATIVE) 01/02/18 20:55 Urine Glucose (UA) Neg mg/dL (Normal) 01/02/18 20:55 Urine Ketones 80 mg/dL (NEGATIVE) 01/02/18 20:55 Urine Blood Negative (NEGATIVE) 01/02/18 20:55 Urine Nitrate Negative (NEGATIVE) 01/02/18 20:55 Urine Bilirubin Negative (NEGATIVE) 01/02/18 20:55 Urine Urobilinogen 0.2-1.0 mg/dL (0.2-1.0) 01/02/18 20:55 Ur Leukocyte Esterase Small [place]/uL (Negative) 01/02/18 20:55 Urine RBC (Auto) 3 /hpf (0-3) 01/02/18 20:55 Urine Microscopic WBC 9 /hpf (0-5) H 01/02/18 20:55 Ur Squamous Epith Cells 4 /hpf (0-5) 01/02/18 20:55 Urine Bacteria Rare (<OCC) 01/02/18 20:55 - Hospital Course Hospital Course: 42 y/o lady with hx of Internal Hemorrhoids, came in because of worseing abdominal pain x 2 wks . Also has rectal pain on defecation. She had a similar abd pain last month and was seen at [facility] where a Cts can was done w/c showed some Fibroids. Pt was observed in Med Surg and started on Pain mgt. Pelvic Sonogram showed Multiple Fibroids. GI and prize coordinator consulted. RECEPTIONIST TELEPHONE OPERATOR felt that her pain was not due to the Fibroids and rec outpt follow up. GI ( Dr Lebron ) did a Flex Sigmoidoscopy w/c showed Internal Hemorrhoids. Patient's abd pain resolved. Will discharge her home and further work up to be done as outpt. (1) Abdominal pain unclear etiology , further work up needed Status: Acute Pain now resolved Flex Sig : negative except for Int hemorrhoids Metamucil daily further work up as outpt ff up with Dr Lebron in 2 wks (2) Uterine fibroid Status: Chronic prize coordinator consulted- ff up as outpt for further mgt (3) Internal hemorrhoids Status: Chronic Metamucil Discharge Exam - Head Exam Head Exam: ATRAUMATIC, NORMAL INSPECTION, NORMOCEPHALIC - Eye Exam Eye Exam: EOMI, Normal appearance, PERRL Pupil Exam: NORMAL ACCOMODATION - ENT Exam ENT Exam: Mucous Membranes Moist, Normal External Ear Exam - Neck Exam Neck exam: Full Rom - Respiratory Exam Respiratory Exam: NORMAL BREATHING PATTERN. absent: Respiratory Distress - Cardiovascular Exam Cardiovascular Exam: REGULAR RHYTHM, +S1, +S2 - GI/Abdominal Exam GI & Abdominal Exam: Normal Bowel Sounds, Soft. absent: Tenderness - Extremities Exam Extremities exam: full ROM, normal capillary refill, pedal pulses present - Back Exam Back exam: FULL ROM. absent: CVA tenderness (L), CVA tenderness (R), paraspinal tenderness, vertebral tenderness - Neurological Exam Neurological exam: Alert, CN II-XII Intact, Normal Gait, Oriented x3, Reflexes Normal - Psychiatric Exam Psychiatric exam: Normal Affect, Normal Mood - Skin Skin Exam: Dry, Normal Color, Warm Discharge Plan - Discharge Medications Prescriptions: Omeprazole 20 mg PO DAILY #30 tablet.dr Shayy Browning [Metamucil] 425 gm PO DAILY #1 powder - Follow Up Plan Condition: GOOD Disposition: HOME/ ROUTINE Instructions: Uterine Fibroids, Flexible Sigmoidoscopy, Acute Abdomen (Belly Pain), Adult (DC) Additional Instructions: ff up with Dr Lebron in 1-2 wks appt RECEPTIONIST TELEPHONE OPERATOR clinic in 1-2 wks [facility] appt in 1 wk Referrals: Solitario Tineo DO [Staff Provider] - Darren Lebron MD [Staff Provider] -
[2018-01-04 16:06] VITALS: BP 120/70; PULSE 77; RESP 20; TEMP 98.2; O2SAT 99
== END 2018-01-04 16:30 | disposition home or self-care (01) ==
LOC: H.ER 16:47 → INTOOBSV 01-03 02:29 → H.ERHOLD 01-03 02:29 → H.MEDSURG1 01-03 04:46
PROVIDERS: ADMIT Internal Medicine; ATTEND Internal Medicine
DX: R10.32 Left lower quadrant pain (principal); K64.8 Other hemorrhoids; D25.9 Leiomyoma of uterus, unspecified; E78.00 Pure hypercholesterolemia, unspecified; K92.1 Melena
CPT/HCPCS: 36415; 45330; 76830; 80048; 80053; 81003; 81025; 83605; 83690; 85025; 87040; 96360; 96365; 99285; G0378; J0744; J1885; J2405; J7040; J7120

== ENCOUNTER 2019-03-05 07:29 | Day surgery (SDC) | payer OTHER ==
[2019-03-05 07:59] VITALS: BMI 25.4
[2019-03-05] MEDS ORDERED: Lactated Ringer's 500 ML IV ONE (08:02)
[2019-03-05 08:11] VITALS: O2SAT 100
[2019-03-05] MEDS ORDERED: Propofol 10 mg/ml Inj (20 ML) ONE (10:17)
[2019-03-05] MEDS ORDERED: Midazolam 2 MG/2 ML VIAL ONE (10:17)
[2019-03-05 10:34] VITALS: TEMP 97.9
[2019-03-05 10:55] VITALS: BP 109/59; PULSE 65; RESP 20
== END 2019-03-05 12:27 | disposition home or self-care (01) ==
LOC: H.ENDO 07:29
PROVIDERS: ATTEND Internal Medicine Gastroenterology
DX: K64.8 Other hemorrhoids (principal); R93.3 Abnormal findings on diagnostic imaging of other parts of digestive tract
CPT/HCPCS: 45378; J2001; J2250; J2704; J7120